=== PATIENT | female | born 1955 | race Two or more races ===

== ENCOUNTER 2018-04-07 12:25 | Emergency (ER) | payer OTHER ==
[2018-04-07 12:49] VITALS: BP 137/75; PULSE 87; TEMP 98.6; BMI 22.6
--- NOTE | 2018-04-07 13:12 | PDOC ---
History of Present Illness - General Chief Complaint: Pain Stated Complaint: Pain History Source: Patient Exam Limitations: No Limitations - History of Present Illness Initial Comments: 04/07/18 13:50 63 yo Past History - Past Medical History Allergies/Adverse Reactions: Allergies Allergy/AdvReac Type Severity Reaction Status Date / Time No Known Allergies Allergy Verified 04/07/18 12:49 Home Medications: Ambulatory Orders Naproxen 500 mg PO BID PRN #24 tablet 04/07/18 COPD: No Diabetes: Yes - Suicide/Smoking/Psychosocial Hx Smoking History: Never smoked Hx Alcohol Use: No Drug/Substance Use Hx: No *Physical Exam - Vital Signs Last Vital Signs Temp Pulse Resp BP Pulse Ox 98.6 F 87 16 137/75 98 04/07/18 12:44 04/07/18 12:44 04/07/18 12:44 04/07/18 12:44 04/07/18 12:44 Moderate Sedation - Procedure Monitoring Vital Signs: Procedure Monitoring Vital Signs Temperature 98.6 F 04/07/18 12:44 Pulse Rate 87 04/07/18 12:44 Respiratory Rate 16 04/07/18 12:44 Blood Pressure 137/75 04/07/18 12:44 O2 Sat by Pulse Oximetry (%) 98 04/07/18 12:44 ED Treatment Course - LABORATORY CBC & Chemistry Diagram: 04/07/18 14:21 04/07/18 14:05 *DC/Admit/Observation/Transfer Diagnosis at time of Disposition: Abdominal pain Qualifiers: Abdominal location: right upper quadrant Qualified Code(s): R10.11 - Right upper quadrant pain - Discharge Dispostion Disposition: HOME Decision to Admit order: No - Prescriptions Prescriptions: Naproxen 500 mg PO BID PRN #24 tablet PRN Reason: Pain - Referrals Referrals: Bolivar Courtney MD [Primary Care Provider] - - Patient Instructions Printed Discharge Instructions: DI for Abdominal Pain-Adult Additional Instructions: You have been evaluated in the emergency department for your abdominal pain. Your labs were within normal limits and your imaging showed no gallstones or infection in the gallbladder. Please take the naproxen as prescribed for pain. Please follow up with Dr. Courtney within 72 hours after discharge for follow up care and management. Please take the medication as prescribed. Please return to the emergency department if you have worsening pain or new concerning symptoms such as fever/chills, migration of pain to the lower right quadrant, and nausea and vomiting. Thank you. - Post Discharge Activity Forms/Work/School Notes: Back to Work
--- NOTE | 2018-04-07 13:28 | PDOC ---
Attending Attestation - Resident Resident Name: Rony Ayala - ED Attending Attestation I have performed the following: I have examined & evaluated the patient, The case was reviewed & discussed with the resident, I agree w/resident's findings & plan, Exceptions are as noted - HPI HPI: 04/07/18 13:56 63y F NIDDM presents with R sided abdominal pain for the past 3 days. Pain was gradual onset, but has been worsening. The pain is intermittent and seems worse when she takes a dep breath and when she bends over. The pt denie sany cough, hemoptysis, leg swelling, n/v, fever/chills, abd pain, dysuria, hematuria, dairrhea, melen, bpr. no recent injuries, falls or heavy lifting. Pt was seen by PMD who referred her to the ED for further evaluation. PMD: Dr. Barber - Physicial Exam PE: 04/07/18 14:00 GENERAL: The patient is awake, alert, and fully oriented, Nontoxic - in no acute distress. HEAD: Normocephalic, atraumatic. EYES: extraocular movements intact, sclera anicteric, conjunctiva clear. ENT: Normal voice, Moist mucous membranes. NECK: Normal range of motion, supple LUNGS: Breath sounds equal, clear to auscultation bilaterally. No wheezes, no rhonchi, no rales. HEART: Regular rate and rhythm, normal S1 and S2 without murmur, rub or gallop. ABDOMEN: Soft, nontender, neg murphies, no ttp at mcburneys point, normoactive bowel sounds. No guarding, no rebound. No CVA tenderness MSK: Mild reporducible tenderness in the R obliques EXTREMITIES: Normal range of motion, no edema. No clubbing or cyanosis. No cords, erythema, or tenderness. NEUROLOGICAL: No facial assymetry, Normal speech, moving all 4 ext spontaneosly and symmetrically PSYCH: Normal mood, normal affect. SKIN: Warm, Dry, normal turgor, - Medical Decision Making 04/07/18 13:35 ddx - msk, doubht gall stones, will ck UA to r/o kidney stones will give NSAIDS for pain control will reassess 04/07/18 16:35 pts US is engative labs unremarkable pt feeling well suspect pts pain is msk in nature will dc with pmd fu return precautions were discussed Heart Score/ECG Review - ECG Impressions Comment:: 04/07/18 15:45 Twelve-lead EKG was performed and reviewed by me. There is normal sinus rhythm with a normal rate. rate of 79 The axis is normal. The intervals are normal. There is normal R wave progression There are no ST or T wave abnormalities. Impression: Normal twelve-lead EKG
[2018-04-07] MEDS ORDERED: IBUPROFEN 600 MG TABLET (FP) PO ONE ×2 (13:56→13:58)
[2018-04-07 14:38] LABS: BASO % 0.2 % (0-2.0); EOS % 0.6 % (0-4.5); HEMOGLOBIN 14.6 GM/dL (10.7-15.3); LYMPH % 12.3 % (8-40); MCH 31.8 pg (25.7-33.7); MCHC 35.7 g/dl (32.0-36.0); MEAN CELL VOLUME 89.2 fl (80-96); MEAN PLT VOLUME 8.8 fl (7.5-11.1); NEUT % 75.9 % (42.8-82.8); PLATELET COUNT 219 K/MM3 (134-434); RBC 4.59 M/mm3 (3.60-5.2); RDW 13.4 % (11.6-15.6); WHITE BLOOD COUNT 8.7 K/mm3 (4.0-10.0)
[2018-04-07 14:46] LABS: URINE APPEARANCE CLEAR; URINE BILIRUBIN NEGATIVE (<2.0 mg/dL); URINE COLOR LTYELLOW; URINE GLUCOSE (UA) NEGATIVE (NEGATIVE); URINE KETONE NEGATIVE (NEGATIVE); URINE LEUK ESTERASE TRACE (NEGATIVE); URINE NITRITE NEGATIVE (NEGATIVE); URINE PROTEIN NEGATIVE (NEGATIVE); URINE UROBILINOGEN NEGATIVE mg/dL (0.2-1.0)
[2018-04-07 14:47] LABS: EPI CELLS RARE /HPF (FEW)
[2018-04-07 15:02] LABS: ALBUMIN 4.1 g/dl (3.4-5.0); ALK PHOS 71 U/L (45-117); ANION GAP 7 MMOL/L (8-16); BILIRUBIN,TOTAL 0.7 mg/dL (0.2-1); BLOOD UREA NITROGEN 10 mg/dL (7-18); CALCIUM 9.3 mg/dL (8.5-10.1); CHLORIDE 104 mmol/L (98-107); CO2 27 mmol/L (21-32); CREATININE 0.7 mg/dL (0.55-1.3); GLUCOSE,RANDOM 119 mg/dL (74-106); SGOT/AST 27 U/L (15-37); SGPT/ALT 56 U/L (13-61); SODIUM 139 mmol/L (136-145); TOT PROT 8.1 g/dl (6.4-8.2)
--- NOTE | 2018-04-07 15:32 | EKG ---
Test Reason : Blood Pressure : / mmHG Vent. Rate : 079 BPM Atrial Rate : 079 BPM P-R Int : 146 ms QRS Dur : 082 ms QT Int : 350 ms P-R-T Axes : 061 035 048 degrees QTc Int : 401 ms NORMAL SINUS RHYTHM NORMAL ECG NO PREVIOUS ECGS AVAILABLE Confirmed by NIKKY SOTO, ILSA ([id number]) on 04/07/2018 3:32:23 PM Referred By: Confirmed By:ILSA SHER MD
[2018-04-07 17:01] LABS: AMYLASE 68 U/L (25-115); LIPASE 212 U/L (73-393)
== END 2018-04-07 18:13 | disposition home or self-care (01) ==
LOC: JER 12:25
DX: R10.11 Right upper quadrant pain (principal)
CPT/HCPCS: 36415; 71046-TC-FY; 76705-TC; 80053; 81003; 81015; 82150; 83690; 85025; 87086; 93005; 93010; 99283-25

== ENCOUNTER → 2023-06-20 | Day surgery (SDC) | payer OTHER | END | disposition home or self-care (01) | LOC: FMAMMOTONE 08:50 | PROVIDERS: ATTEND Surgery | PROC: 0HBU3ZX Excision of Left Breast, Percutaneous Approach, Diagnostic (ICD-10-PCS; principal; 2023-06-20) | DX: N60.22 Fibroadenosis of left breast (principal); N64.89 Other specified disorders of breast; R92.8 Other abnormal and inconclusive findings on diagnostic imaging of breast | CPT/HCPCS: 19081; 76098-TC-FY; 87899; 88305-TC; A4648 ==